=== PATIENT | male | born 1965 | race Two or more races ===

== ENCOUNTER 2016-08-01 16:55 | Inpatient (IN) | payer MEDICAID ==
[~2016-08-01] VITALS: Ht 182.9 cm; Wt 92.7 kg
[2016-08-01 18:01] LABS: Urine RBC None Seen /hpf (0 - 3)
[2016-08-01 18:16] LABS: Basophils # (auto) 0 uL; Basophils % (auto) 0.2 % (0.0-2.0); Eosinophils # (auto) 0.2 uL; Hematocrit 41.3 % (41.0-53.0); Hemoglobin 13.8 g/dL (13.5-17.5); Lymphocytes # (auto) 2.1 uL; Lymphocytes % (auto) 33.5 % (10.0-50.0); Mean Corpuscular Hemoglobin 28.9 pg (28.0-32.0); Mean Corpuscular Hgb Conc. 33.5 g/dL (32.0-36.0); Mean Corpuscular Volume 86.5 fL (80.0-100.0); Mean Platelet Volume 8.8 fL (7.4-10.4); Monocytes # (auto) 0.7 uL; Neutrophils # (auto) 3.2 uL; Neutrophils % (auto) 51.3 % (37.0-80.0); Platelet Count (auto) 235 10^3/uL (140-450); Red Cell Distribution Width 13.9 % (11.6-16.0); White Blood Cell 6.2 10^3/uL (4.4-10.8)
[2016-08-01 18:24] LABS: Urine Bilirubin Negative (Negative); Urine Blood Negative /uL (Negative); Urine Glucose Normal (Normal); Urine Ketone Negative (Negative); Urine Nitrite Negative (Negative); Urine Squamous Epithelial Cell FEW /hpf (<5); Urine Urobilinogen Normal (Negative); Urine pH 5.5 (5.0-8.0)
[2016-08-01 18:26] LABS: Urine Color Straw (Yellow)
[2016-08-01 18:30] LABS: INR 1.02 (0.9-1.15); Partial Thromboplastin Time 25.3 sec (22.64-33.71); Prothrombin Time 10.5 sec (9.37-12.3)
[2016-08-01 18:38] LABS: Albumin 3.7 g/dL (3.4-5.0); Alkaline Phosphatase 95 U/L (45-117); Anion Gap 9 (5-15); Aspartate Aminotransferase 127 U/L (15-37); BUN/Creatinine Ratio 20.4; Bilirubin, Total 0.5 mg/dL (0.2-1.0); Blood Urea Nitrogen 19 mg/dL (7-18); Calcium 8.6 mg/dL (8.5-10.1); Carbon Dioxide 27 mmol/L (21-32); Chloride 105 mmol/L (98-107); GFR African American 110 mL/min; GFR Non-African American 91 mL/min; Glucose 131 mg/dL (74-106); Magnesium 2.2 mg/dL (1.6-2.6); Potassium 3.5 mmol/L (3.5-5.1); Sodium 141 mmol/L (136-145); Total Protein 7.3 g/dL (6.4-8.2)
[2016-08-02] MEDS ORDERED: cloNIDine HCL 0.1 MG TAB PO PRN (00:30)
[2016-08-02] MEDS ORDERED: TEMAZEPAM 15 MG CAP PO PRN (00:30)
[2016-08-02] MEDS ORDERED: ACETAMINOPHEN 325 MG TAB PO PRN (00:30)
[2016-08-02] MEDS ORDERED: ONDANSETRON HCL 4 MG/2 ML VIAL IV PRN (00:30)
[2016-08-02] MEDS ORDERED: HYDROcodone-ACET 5/325MG TAB PO PRN (00:30)
[2016-08-02 02:30] VITALS: BP 135/88
[2016-08-02] MEDS ORDERED: PNEUMOCOCCAL VACC POLYS 25 MCG/0.5 ML VIAL IM ONE (04:15)
[2016-08-02] MEDS ORDERED: HYDR-2551 PO (04:24)
[2016-08-02] MEDS ORDERED: LISI-646 PO (04:24)
[2016-08-02 05:00] VITALS: BP 149/79
[2016-08-02 09:03] VITALS: BP 147/91
[2016-08-02] MEDS: ENOXAPARIN SOD 40 MG/0.4 ML SYRINGE SC SCH (09:33)
[2016-08-02] MEDS: HCTZ 25 MG TAB PO SCH (09:34)
[2016-08-02] MEDS: FAMOTIDINE 20 MG TAB PO SCH ×2 (09:35→22:18)
[2016-08-02] MEDS ORDERED: LOSARTAN POTASSIUM 50 MG TAB PO SCH (10:00)
[2016-08-02 12:18] VITALS: BP 163/96
[2016-08-02 16:29] VITALS: BP 133/77
[2016-08-02 21:52] VITALS: BP 134/75
[2016-08-02] MEDS: LISINOPRIL 20 MG TAB PO SCH (22:19)
[2016-08-03 05:40] VITALS: BP 127/71
[2016-08-03 06:28] LABS: Basophils # (auto) 0 uL; Basophils % (auto) 0.2 % (0.0-2.0); Eosinophils # (auto) 0.1 uL; Eosinophils % (auto) 2.1 % (0.0-7.0); Hematocrit 44.6 % (41.0-53.0); Lymphocytes # (auto) 1.6 uL; Lymphocytes % (auto) 22.5 % (10.0-50.0); Mean Corpuscular Hgb Conc. 33.7 g/dL (32.0-36.0); Mean Corpuscular Volume 86.1 fL (80.0-100.0); Mean Platelet Volume 8.6 fL (7.4-10.4); Monocytes # (auto) 0.7 uL; Monocytes % (auto) 10.4 % (0.0-12.0); Neutrophils # (auto) 4.5 uL; Neutrophils % (auto) 64.8 % (37.0-80.0); Platelet Count (auto) 252 10^3/uL (140-450); Red Cell Distribution Width 13.7 % (11.6-16.0)
[2016-08-03 06:55] LABS: Albumin 3.6 g/dL (3.4-5.0); BUN/Creatinine Ratio 14.1; Bilirubin, Total 1.4 mg/dL (0.2-1.0)
[2016-08-03 07:46] LABS: Potassium 4.6 mmol/L (3.5-5.1); Total Protein 7.1 g/dL (6.4-8.2)
[2016-08-03 08:00] VITALS: BP 134/75
[2016-08-03 09:00] VITALS: BP 134/87
[2016-08-03] MEDS: LISINOPRIL 20 MG TAB PO SCH (09:23)
[2016-08-03] MEDS: ENOXAPARIN SOD 40 MG/0.4 ML SYRINGE SC SCH (09:23)
[2016-08-03] MEDS: HCTZ 25 MG TAB PO SCH (09:23)
[2016-08-03] MEDS: FAMOTIDINE 20 MG TAB PO SCH (09:24)
[2016-08-03] MEDS ORDERED: amLODIPine BESYLATE 5 MG TAB PO SCH (10:00)
[2016-08-03 12:00] VITALS: BP 136/79
[2016-08-03] MEDS ORDERED: LISI-646 PO (15:48)
[2016-08-03] MEDS ORDERED: ASPI81CH43 GT (15:49)
[2016-08-03] MEDS ORDERED: ASPI-231 PO (15:49)
[2016-08-03] MEDS ORDERED: AMLO5TAB2 PO (15:50)
[2016-08-03 15:52] VITALS: BP 134/87
[2016-08-03 16:58] VITALS: BP 134/68
== END 2016-08-03 16:57 | disposition home or self-care (01) | DRG 199 ==
LOC: ER 16:59 → OVERFLOW 17:00 → WEST WING 08-02 02:16
PROVIDERS: ADMIT Nurse Practitioner; ATTEND Internal Medicine
DX: I10 Essential (primary) hypertension (principal); H54.42 Blindness, left eye, normal vision right eye; R79.89 Other specified abnormal findings of blood chemistry; Z23 Encounter for immunization
CPT/HCPCS: 36415; 70450; 71010; 76705; 80053; 81001; 83735; 84484; 85025; 85610; 85730; 94761; G0434